=== PATIENT | male | born 1965 | race Caucasian/White ===

== ENCOUNTER → 2019-05-18 | Day surgery (SDC) | payer OTHER ==
[~2019-05-18] MED LIST: ACETAMINOPHEN 325 MG TABLET PO PRN; ALBUTEROL SULFATE 2.5 MG/3 ML NEBU. NEB PRN; ATROPINE 0.5 MG/5 ML DISP.SYRIN. IV PRN; GUAI600T47 PO; IV RINGERS SOLUTION,LACTATED 1,000 ML IV SCH; OMEP20TA63 PO; ONDANSETRON PF 4 MG/2 ML VIAL. IV PRN; PHENOL ORAL SPRAY 177ML BOTTLE. MM PRN; PROPOFOL 20 ML IV ONE; PSEU120T9 PO; TELM80TA PO; diphenhydrAMINE 50 MG/ML VIAL IV PRN
[2019-05-18 14:31] VITALS: BP 118/76
--- NOTE | 2019-05-20 16:06 | PATHOLOGY ---
[facility] Accession Number: [id number] . 01 Material submitted: . stomach - GASTRIC BX . 01 Clinical history: . GERD, melena . 02 Diagnosis: Gastric biopsies: - Very mild chronic gastritis. . (JPM:mm; 05/20/2019) [facility] 05/20/2019 0917 Local . 02 Comment: Sections of the gastric biopsy reveal segments of gastric antral and antral/body transition mucosa showing congestion and very mild chronic inflammation. A properly-controlled immunoperoxidase stain for Helicobacter is negative for Helicobacter organisms. . Special stain: Immunoperoxidase stain for Helicobacter . (JPM:mml; 05/20/2019) . 02 Electronically signed: . Michael Mills MD, Pathologist NPI- [id number] . 01 Gross description: . Received in formalin labeled "Tate Pagan, gastric BX for H. pylori," are 2 segments of sarkar soft tissue measuring 0.7 x 0.2 x 0.2 cm in aggregate dimensions and ranging from 0.3 to 0.4 cm in maximum dimension. The specimen is submitted entirely in cassette A1. (TSD; 05/19/2019) TOB/TOB 05/19/2019 1821 Local . 02 Pathologist provided ICD-10: K29.50 . 02 CPT . 708427, [id number] Specimen Comment: A courtesy copy of this report has been sent to [phone] Specimen Comment: Report sent to Performed at: [facility] [address], [place] [id number] MD Frandy Martin MD Phone: [phone] Performed at: [address] [facility] [id number] MD Michael Mills MD Phone: [phone]
== END | disposition home or self-care (01) ==
LOC: SURG 12:05
PROVIDERS: ATTEND Emergency Medicine
DX: K21.9 Gastro-esophageal reflux disease without esophagitis (principal); K29.50 Unspecified chronic gastritis without bleeding; K92.1 Melena; K31.89 Other diseases of stomach and duodenum; I10 Essential (primary) hypertension; Z79.899 Other long term (current) drug therapy; Z98.890 Other specified postprocedural states; Z88.8 Allergy status to other drugs, medicaments and biological substances
CPT/HCPCS: 43239; 88305; 88342; J2704; J7120